=== PATIENT | male | born 2000 | race Caucasian/White ===

== ENCOUNTER 2022-02-22 17:57 | Emergency (ER) | payer MEDICAID | END 2022-02-22 19:25 | disposition left against medical advice (07) | LOC: EDUNIT# 17:57 → ER 18:02 | DX: J02.9 Acute pharyngitis, unspecified (principal); Z53.21 Procedure and treatment not carried out due to patient leaving prior to being seen by health care provider ==

== ENCOUNTER 2023-01-11 18:48 | Emergency (ER) | payer SELFPAY ==
[~2023-01-11] VITALS: Ht 182.9 cm; Wt 100.0 kg
[2023-01-11 18:50] VITALS: BP 145/87; PULSE 74; RESP 16; TEMP 98.4; O2SAT 99
[2023-01-11] MEDS ORDERED: CIPR-202 PO (23:24)
[2023-01-11] MEDS ORDERED: ACET-1025 PO (23:24)
[2023-01-11] MEDS ORDERED: IBUP-1985 PO (23:24)
== END 2023-01-11 19:37 | disposition left against medical advice (07) ==
LOC: ER 18:48
DX: M79.672 Pain in left foot (principal); Z53.21 Procedure and treatment not carried out due to patient leaving prior to being seen by health care provider
CPT/HCPCS: 99281

== ENCOUNTER 2023-01-11 22:05 | Emergency (ER) | payer BC ==
[~2023-01-11] VITALS: Ht 182.9 cm; Wt 85.6 kg
[2023-01-11 22:27] VITALS: BP 140/77; PULSE 66; RESP 16; TEMP 98; O2SAT 98
[2023-01-11] MEDS ORDERED: ondansetron 4mg rapidly disintigrating tab PO ONE (23:20)
[2023-01-11] MEDS ORDERED: ketorolac trometh inj. 60 MG/2 ML VIAL IM ONE (23:20)
[2023-01-11] MEDS ORDERED: ciprofloxacin 250mg tablet PO ONE (23:20)
[2023-01-11] MEDS ORDERED: acetaminophen 325mg tablet PO ONE (23:20)
[2023-01-11] MEDS ORDERED: TETanus/Pertussis (Acell)/Diphther VAC/PF (Tdap-Adult) 0.5ml syringe IMVAC ONE (23:20)
[2023-01-11] MEDS ORDERED: IBUP-1985 PO (23:24)
[2023-01-11] MEDS ORDERED: CIPR-202 PO (23:24)
[2023-01-11] MEDS ORDERED: ACET-1025 PO (23:24)
== END 2023-01-11 23:40 | disposition home or self-care (01) ==
LOC: ER 22:06
DX: S91.331A Puncture wound without foreign body, right foot, initial encounter (principal); R20.0 Anesthesia of skin; J45.909 Unspecified asthma, uncomplicated; Z23 Encounter for immunization; W45.0XXA Nail entering through skin, initial encounter; Y93.89 Activity, other specified; Y92.89 Other specified places as the place of occurrence of the external cause; Y99.8 Other external cause status
CPT/HCPCS: 73630; 90471; 90715; 96372; 99284; J1885

== ENCOUNTER 2024-10-30 06:24 | Inpatient (IN) | payer BC, MEDICAID ==
[~2024-10-30] VITALS: Ht 182.9 cm; Wt 111.0 kg
[~2024-10-30 06:24] MED LIST: IBUP-1985 PO
[2024-10-30 06:52] LABS: MEAN PLATELET VOLUME 8.8 FL (7.4-10.4); RED CELL DISTRIBUTION WIDTH 13.1 % (11.5-14.5)
--- NOTE | 2024-10-30 06:55 | Physician Documentation ---
History of Present Illness Chief Complaint: Abdominal Pain Stated Complaint: ABDOMINAL PAIN Time Seen by MD: 06:42 Primary Medical Doctor: None Mode of Arrival: POV, Ambulatory HPI 24-year-old male presenting with epigastric abdominal pain that started about an hour and half ago and suddenly woke him up from sleep. He describes the pain as sharp, it his epigastrium than radiating to his back. He rates it at about 6/10 on intensity and also reports that he had two episodes of nonbloody vomiting earlier. Denies any diarrhea, constipation, urinary symptoms, fever, chills or any other associated symptoms. States that yesterday he felt fine and denies eating anything unusual. He smokes cigarettes but denies any heavy alcohol or drug use. 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 CONST: Well developed and well nourished. In no acute distress HENT: Head Atraumatic EYES: Pupils are equal, round and reactive to light. Normal conjunctiva NECK: Normal range of motion. Supple. CARDIO: Normal rate and regular rhythm. No murmurs, rubs, or gallops. S1, S2. PULM/CHEST: No respiratory distress. Lungs clear to auscultation. No wheeze ABD: Soft, slight tenderness to palpation over the epigastrium. Nondistended. Bowel sounds normal. No guarding. : Exam deferred MSK: No edema. No deformity. NEURO: Alert and oriented to person, place and time. Moving all extremities SKIN: Warm and dry. PSYCH: Normal mood and affect. Good eye contact. Progress Results/Orders Results/Orders Orders - TANIA PETERSON MD Urinalysis, Cult If Indicated (10/30/24 06:30) Cbc/Diff (10/30/24 06:30) Amylase (10/30/24 06:30) Lipase (10/30/24 06:30) CMP (10/30/24 06:30) Stat Ekg (10/30/24 ) Troponin (Single) (10/30/24 06:50) Chest,Single View (10/30/24 06:50) Vital Signs 10/30/24 10/30/24 10/30/24 06:27 06:42 06:42 Temp 97.8 97.8 Pulse 43 49 Resp 18 12 16 B/P (MAP) 186/97 149/99 (116) Pulse Ox 100 98 O2 Flow Rate 0 Laboratory Tests Test 10/30/24 06:40 CBC Comment Chemistry Comments EKG/XRAY/CT/US/VASC/MRI EKG : Additional Comment EKG as interpreted by ED MD indicating sinus bradycardia with a rate of 42 beats per minute, no ischemia, normal axis Chest X-Ray : Additional Comments CHEST RADIOGRAPH Indication: epigastric pain Technique: Single frontal view of the chest was obtained COMPARISON: None FINDINGS: Lines and Tubes: None Lungs: Clear Pleura: No effusion. No pneumothorax. Cardiomediastinal contours: Unremarkable Bones: Unremarkable IMPRESSION: No acute disease. : Impression Exam: CT CT ABDOMEN PELVIS History: epigastric pain Comparison Study: None Technique: Multidetector spiral CT of the abdomen and pelvis was performed from lung bases to pubic symphysis. Imaging was performed without intravenous contrast. Coronal and sagittal multiplanar reformats were obtained from the axial data set by the technologist. Radiation Dose : 1. Abdomen/Pelvis: CTDIvol 33.3 mGy, DLP 2037.9 mGy*cm. Findings: Evaluation of vasculature and solid organs is limited due to lack of intravenous contrast use. Lung Bases: Lung bases are clear. Visualized portions of the heart and pericardium are unremarkable. Liver: The liver is normal in size. No focal lesions. Gallbladder and Biliary Tree: The gallbladder is distended with mild pericholecystic fat stranding. No intrahepatic or extrahepatic biliary ductal dilatation. Spleen: The spleen is enlarged measuring 16.2 cm. Pancreas: The pancreas is grossly unremarkable. Adrenal Glands: Unremarkable Kidneys: Kidneys are unremarkable without calculi or hydronephrosis. GI tract: The stomach is grossly normal in appearance. No evidence of small bowel wall thickening or abnormal dilatation to suggest bowel obstruction. The colon is unremarkable. The appendix is visualized and is normal in caliber. Peritoneum/mesentery/retroperitoneum. No evidence of free intraperitoneal air. No ascites. No evidence of suspicious lymphadenopathy. Abdominal Wall: Unremarkable. Vasculature: The visualized abdominal aorta is normal in size and caliber. Evaluation of abdominal and pelvic vessels is limited due to lack of intravenous contrast. Urinary Bladder: Grossly unremarkable for degree of distention. Pelvic Organs: Unremarkable Musculoskeletal: No aggressive focal bony lesions, acute fractures or dislocation. IMPRESSION: 1. Distended gallbladder with mild pericholecystic fat stranding. Right upper quadrant ultrasound is recommended for further evaluation to assess for acute cholecystitis. 2. Splenomegaly. Medical Decision Making Additional Comments 24-year-old male presenting with acute onset epigastric abdominal pain. His lab workup is grossly unremarkable. His CT of the abdomen and pelvis did indicate a distended gallbladder with fat stranding. A follow up ultrasound of the gallbladder did indicate sludge with a thickened gallbladder wall indicating developing acute cholecystitis. Patient will need admission. Surgery was consulted who will see the patient. He will be kept NPO. He was started on IV fluids and given a dose of IV Zosyn. Admission to hospitalist team. Departure Disposition: ADMITTED INPATIENT Admitted to Inpatient Unit: to hospitalist, to surgeon Admission Level of Care: Med/Surg Impression: Primary Impression: Acute cholecystitis Condition: Guarded Referrals: NO PRIMARY CARE PROVIDER (PCP) Signature Scribe Signature: 1 Attestation: 1 TANIA PETERSON MD Oct 30, 2024 06:55
[2024-10-30 07:16] LABS: CREATININE 1.02 MG/DL (0.60-1.10); TOTAL CARBON DIOXIDE 30.6 MMOL/L (24-32); eCRCL 125 ML/MIN; eGFR > 90 ML/MIN
--- NOTE | 2024-10-30 07:25 | ELECTROCARDIOGRAPH REPORT ---
[facility] Test Date: 2024-10-30 Test Time: 06:37:57 Pat Name: MAGDA FRANK Department: EMERGENCY ROOM Room: ORTHO 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 Hal Aguila Measurements Intervals [place] Rate: 42 P: 45 WI: 145 QRS: 89 QRSD: 117 T: 32 QT: 435 QTc: 364 Interpretive Statements Sinus bradycardia Incomplete right bundle branch block Electronically Signed On 10-30-2024 19:42:[address] Hal Aguila Please click the below link to view image of tracing.
--- NOTE | 2024-10-30 07:48 | RADIOLOGY REPORT ---
CHEST RADIOGRAPH Indication: epigastric pain Technique: Single frontal view of the chest was obtained COMPARISON: None FINDINGS: Lines and Tubes: None Lungs: Clear Pleura: No effusion. No pneumothorax. Cardiomediastinal contours: Unremarkable Bones: Unremarkable IMPRESSION: No acute disease.
[2024-10-30 08:54] LABS: LEUKOCYTE ESTERASE ,URINE NEGATIVE (Neg); NITRITES, URINE NEGATIVE (Neg); OCCULT BLOOD,URINE NEGATIVE (Neg)
[2024-10-30 08:55] LABS: UA COLLECTION TYPE CLN CATCH MIDSTREAM
--- NOTE | 2024-10-30 08:57 | RADIOLOGY REPORT ---
Exam: CT CT ABDOMEN PELVIS History: epigastric pain Comparison Study: None Technique: Multidetector spiral CT of the abdomen and pelvis was performed from lung bases to pubic s ymphysis. Imaging was performed without intravenous contrast. Coronal and sagittal multiplanar reform ats were obtained from the axial data set by the technologist. Radiation Dose : 1. Abdomen/Pelvis: CTDIvol 33.3 mGy, DLP 2037.9 mGy*cm. Findings: Evaluation of vasculature and solid organs is limited due to lack of intravenous contrast use. Lung Bases: Lung bases are clear. Visualized portions of the heart and pericardium are unremarkable. Liver: The liver is normal in size. No focal lesions. Gallbladder and Biliary Tree: The gallbladder is distended with mild pericholecystic fat stranding. No intrahepatic or extrahepatic biliary ductal dilatation. Spleen: The spleen is enlarged measuring 16.2 cm. Pancreas: The pancreas is grossly unremarkable. Adrenal Glands: Unremarkable Kidneys: Kidneys are unremarkable without calculi or hydronephrosis. GI tract: The stomach is grossly normal in appearance. No evidence of small bowel wall thickening or abnormal dilatation to suggest bowel obstruction. The colon is unremarkable. The appendix is visualiz ed and is normal in caliber. Peritoneum/mesentery/retroperitoneum. No evidence of free intraperitoneal air. No ascites. No evidenc e of suspicious lymphadenopathy. Abdominal Wall: Unremarkable. Vasculature: The visualized abdominal aorta is normal in size and caliber. Evaluation of abdominal a nd pelvic vessels is limited due to lack of intravenous contrast. Urinary Bladder: Grossly unremarkable for degree of distention. Pelvic Organs: Unremarkable Musculoskeletal: No aggressive focal bony lesions, acute fractures or dislocation. IMPRESSION: 1. Distended gallbladder with mild pericholecystic fat stranding. Right upper quadrant ultrasound is recommended for further evaluation to assess for acute cholecystitis. 2. Splenomegaly.
[2024-10-30] MEDS: piperacillin/tazo 3.375gm/50ml 50 ML IV ONE (09:47)
--- NOTE | 2024-10-30 10:51 | HISTORY AND PHYSICAL ---
History & Physical Providers to Complaint, abdominal pain ~ History of Present Illness Reason for Admit\Complaint: As above History of Present Illness This is a 24-year-old male, relatively in good health, except history of bradycardia heart rate on admission 42, hypertension poor control, bronchial asthma, splenomegaly, presented today to emergency department chief complaint abdominal pain; in addition this is the patient who years presenting with epigastric abdominal pain that started about an hour and half ago and suddenly woke him up from sleep. He describes the pain as sharp, it his epigastrium than radiating to his back. He rates it at about 6/10 on intensity and also reports that he had two episodes of nonbloody vomiting earlier. Denies any diarrhea, constipation, urinary symptoms, fever, chills or any other associated symptoms. States that yesterday he felt fine and denies eating anything unusual. He smokes cigarettes but denies any heavy alcohol or drug use. Department he was evaluated by physician and after consultation with the surgeon decision was made to admit patient for further evaluation and treatment rule out acute cholecystitis,. Patient started on IV antibiotics, HIDA test pending. 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 No diaphoresis. Allergic/Immunologic, no lymphadenopathy, no hives, no skin eruptions. Eyes, no recent visual changes, no eye pain, no photophobia. Ears, nose, mouth, throat, no sore throat, no nosebleed, no ear pain. Cardiovascular, no palpitations, skipped beats, chest pain, no peripheral edema, Respiratory, no dyspnea, orthopnea, cough, hemoptysis, chest wall pain. Gastrointestinal, positive for abdominal pain, nausea, vomiting, no constipation or diarrhea. : no dysuria, hematuria, pelvic pain, urethral d/c. Endocrine, no polyuria, polydipsia, recent unintentional weight gain or loss. Hematologic/Lymphatic, no petechiae, no enlarged lymph nodes, no bone pain. Integumentary, no rash, no skin lesions, Musculoskeletal, no muscle aches, or pain, no muscle cramps, no recent change in gait Neurological, no dizziness, no headache, no syncope, no paresthesia. Psychiatric, no delusions, visual hallucinations, or hearing hallucinations. ROS - in rest is as in HPI. Exam Vitals: Vital Signs Date Time Temp Pulse Resp B/P (MAP) Pulse Ox O2 Delivery O2 Flow Rate FiO2 10/30/24 09:36 97.8 65 20 155/81 (105) 98 0 Vital signs, stable ,afebrile. Pulse Oximetry reflects adequate oxygenation. BMI is General: well developed, well nourished. Awake , alert, and oriented x4, resting comfortably in the bed, in no acute distress . Skin: Warm, dry, no pallor, no rash or petechiae. HEENT: Atraumatic, normocephalic, EOMI, anicteric sclera B; pink conjunctiva; PERRLA, normal oropharynx, moist oral and nasal mucosa. Tympanic membrane , nose , throat clear. Neck: Trachea midline. Supple, full range of motion, no JVD, bruit , hepatojugular reflex , lymphadenopathy or masses, or other lesions Cardiac: Regular rhythm, regular rate no murmurs, rubs, or gallops. Normal S1 and S2, no S3 noticed. PMI is normal. Respiratory: Equal breath sounds bilaterally, no tachypnea; lungs clear to auscultation bilaterally, no wheezing ,rub or rales, or crackles. Chest wall is symmetric and without deformity. No signs of trauma. Chest wall is nontender. No signs of respiratory distress. Resonance is normal upon percussion bilaterally. Gastrointestinal: Abdomen symmetric, non-distended, soft, mild tender to palpation right upper quadrant and epigastric area, normal bowel sounds x4 quadrant, normoactive, no hepatosplenomegaly , no masses , no bruit, no flank pain bilaterally. No voluntary guarding, rebound, or rigidity. No tenderness to percussion. No pulsatile masses. Equal femoral pulses. Positive Gavin's sign , no McBurney point tenderness. Back; no CVA tenderness bilaterally, no deformities. Neck and back are without deformity as well. No tenderness noted on palpation of the spinous processes. Spinous processes are midline. Cervical, thoracic, and lumbar paraspinal muscles are not tender and are without spasm. : normal external genitalia, without lesions, swelling, masses or tenderness. Musculoskeletal: Extremities, normal range of motion, non-tender, muscle strength 5/5 x 4. Negative Homans signs bilaterally on lower extremity. Distal pulses full symmetrical, no clubbing, cyanosis , edema. Neurological: Speech is clear, alert, and oriented x 4. No motor or sensory deficit, deep tendon reflexes normal, cerebellar intact. Cranial nerves II-XII intact. Psych: Alert and or appropriate, normal affect. Vascular: Good distal pulses, which are equal x4; capillary refill less than 2 seconds. Lymphatic, no lymphadenopathy. Diagnostic Data Last Recorded Lab Results: 10/30/24 0640 10/30/24 0640 Advance Care Planning Advanced Care plannin - 30 Minutes Additional Plan Assessment Acute cholecystitis Gallbladder polyp Hypertension poor control Hypokalemia Sinus bradycardia Splenomegaly History of bronchial asthma Plan IV fluids antibiotics keep patient well hydrated euvolemic Replace electrolytes Patient NPO Protonix IV HIDA test pending Additional lab work pending Surgeon is on the case awaiting evaluation and consultation I reconciled home medications DVT gastropathy prophylaxis addressed Sepsis Screening Reassessment Date: Oct 30, 2024 Date of Service: Oct 30, 2024 Billing Provider: LASHANDA JAUREGUI MD Common Visit Codes: 95447-[id number] INP/OBS CARE (HIGH) Secondary Visit Codes: 83863-[id number] CARE PLAN ADDL 30MIN LASHANDA JAUREGUI MD Oct 30, 2024 10:51
[2024-10-30] MEDS: normal saline 1000ml 1,000 ML IV SCH (10:52)
--- NOTE | 2024-10-30 10:53 | RADIOLOGY REPORT ---
INDICATION: gallbladder distension TECHNIQUE: Multiple real-time sonographic images were obtained of the right upper quadrant. COMPARISON: CT CT ABDOMEN PELVIS on DOS: 10/30/24 FINDINGS: The liver demonstrates homogeneous echotexture without focal mass lesions. The liver measu res 13.2 cm. There is no intrahepatic or extrahepatic ductal dilatation. The common duct measures 0.3 cm. Gallbladder sludge is present. The gallbladder wall measures 0.4 cm and is within normal limits. Gall bladder polyp is present measuring 0.2 cm. The right kidney measures 10.9 cm. The right kidney is normal in contour, size, and shape. The echoge nicity is normal. There is no hydronephrosis. The pancreas is not well visualized due to overlying bowel gas. IMPRESSION: Gallbladder sludge is present. Gallbladder polyp is present measuring 0.2 cm. FOLLOW UP RECOMMENDATIONS: Low-risk polyps (pedunculated with a thick or wide stalk, or sessile): < 6 mm: no follow-up 7-9 mm follow-up ultrasound at 12 months 10-14 mm: follow-up ultrasound at 6, 12, 24, and 36 months vs surgical consult > 15 mm: surgical consult Reji Bess, Scot C, Josie J et al. Management of Incidentally Detected Gallbladder Polyps: Society of Radiologists in Ultrasound Consensus Conference Recommendations. Radiology. 2021;:[id number].
[2024-10-30] MEDS ORDERED: NO HOME MEDS (11:15)
[2024-10-30] MEDS ORDERED: HYDROcodone/acetaminophen 5mg/325mg tablet PO PRN (11:55)
[2024-10-30] MEDS ORDERED: ondansetron 4mg rapidly disintigrating tab PO PRN (11:55)
[2024-10-30] MEDS ORDERED: potassium Cl 20 mEq SR tablet PO PRN ×2 (11:55)
[2024-10-30] MEDS ORDERED: magnesium hydroxide 30ml (MOM) UD suspension PO PRN (11:55)
[2024-10-30] MEDS ORDERED: mag hydrox/Alum hydrox/simeth 30ml oral suspension PO PRN (11:55)
[2024-10-30] MEDS ORDERED: HYDROmorphone inj. 0.5 MG/0.5 ML DISP.SYRIN IV PRN (11:55)
[2024-10-30] MEDS ORDERED: bisacodyl 10mg suppository rectal RC PRN (11:55)
[2024-10-30] MEDS ORDERED: HYDROcodone/acetaminophen 10/325mg tab PO PRN (11:55)
[2024-10-30] MEDS ORDERED: acetaminophen 650mg rectal suppository RC PRN (11:55)
[2024-10-30] MEDS ORDERED: metoclopramide 5 mg/ml inj IV PRN (11:55)
[2024-10-30] MEDS ORDERED: potassium Cl 40MEQ/1/2NS 520ml 520 ML IV PRN (11:55)
[2024-10-30] MEDS ORDERED: magnesium sulf-water 4G/100mL 100 ML IV PRN (11:55)
[2024-10-30] MEDS ORDERED: magnesium Cl slow-release 64mg tablet PO PRN (11:55)
[2024-10-30] MEDS ORDERED: ondansetron/PF 4mg/2ml inj IV PRN (11:55)
[2024-10-30] MEDS ORDERED: magnesium sulf-water 2g/50mL 50 ML IV PRN (11:55)
[2024-10-30 12:37] LABS: APTT 27 SECONDS (22-32); INR 1.1 INR
[2024-10-30 12:46] LABS: PHOSPHORUS 3.7 MG/DL (2.3-4.5); PRO BRAIN NATRIURETIC PEPTIDE 105 PG/ML (0-125)
--- NOTE | 2024-10-30 13:58 | RADIOLOGY REPORT ---
Procedure: NM NM HIDA SCAN Exam Date: 10/30/2024 12:04 PM Clinical History: Gallbladder distension Comparison Study: US ULTRASOUND OF ABDOMEN on DOS: 10/30/24, CT CT ABDOMEN PELVIS on DOS: 10/30/24 Nuclear Medicine Hepatobiliary Scan. Technique: Following the intravenous administration of 5 mCi of technetium 99m labeled Choletec multiple planar abdominal planar images were obtained in anterior projection in 5 minute intervals for 60 minutes . R ight lateral images were obtained at 65 minutes after injection. Findings: The liver appears grossly normal in size. There is no abnormal persistence of the cardiac or blood po ol activity. Gallbladder is not visualized at 65 minutes. Impression: Findings consistent with cystic duct obstruction.
[2024-10-30 14:26] LABS: URINE AMPHETAMINE SCREEN NEGATIVE (Neg); URINE BARBITUATE SCREEN NEGATIVE (Neg); URINE BENZODIAZEPINES SCREEN NEGATIVE (Neg); URINE CANNABINOID SCREEN NEGATIVE (Neg); URINE COCAINE SCREEN NEGATIVE (Neg); URINE METHADONE SCREEN NEGATIVE (Neg); URINE OPIATE SCREEN NEGATIVE (Neg); URINE PHENCYCLIDINE SCREEN NEGATIVE (Neg)
[2024-10-30] MEDS: potassium Cl 20mEq in NS 1,000 ML IV SCH (14:27)
[2024-10-30 16:00] VITALS: BP 117/75; PULSE 44; RESP 16; TEMP 97.3; O2SAT 100
[2024-10-30 18:00] VITALS: BP 117/75; PULSE 44; RESP 21; TEMP 97.8; O2SAT 100
[2024-10-30] MEDS: piperacillin/tazo 4.5gm/100ml 100 ML IV SCH (18:00)
[2024-10-30] MEDS: K and/or MAG REPLACEMENT MC SCH (18:41)
[2024-10-30] MEDS: docusate sod 100mg capsule PO SCH (19:12)
--- NOTE | 2024-10-30 19:17 | CONSULTATION REPORT ---
Consult Providers to CC ~ History of Present Illness Reason for Admit\Complaint: 24-year-old male admitted with chief complaint of abdominal pain. History of Present Illness 24-year-old male presented to emergency room earlier today 10/30/2024 with severe epigastric and right upper quadrant pain. Signs and symptoms began approximately 5:00 a.m. this morning. Associated symptoms include nausea and vomiting. He denies any fever, chills, diarrhea or constipation. This is the patient's 1st episode of this type. He has no significant past medical history or surgical history. He does not take any medications. He is currently seen, comfortable, no acute distress. He is requesting to eat, as well as being discharged home. Allergies: Coded Allergies: No Known Allergies (Unverified , 10/30/24) Home Medications Home Medications Active Reported No Home Medications (Home Med List) Each Past Medical History Past Medical History None Past Surgical History Surgical History Comment None Family History Family History: FH: hypertension FATHER MOTHER FAMILY/OTHER FHx: gallstones MOTHER GRANDFATHER OR GRANDMOTHER FAMILY/OTHER Past Social History Social History Comment Denies any recreational drug abuse, alcohol abuse Health Maintenance Health Maintenance None specified ROS ROS All within normal limits except HPI Exam Vitals: Vital Signs Date Time Temp Pulse Resp B/P (MAP) Pulse Ox O2 Delivery O2 Flow Rate FiO2 10/30/24 18:30 48 10/30/24 16:10 Room Air 0.0 10/30/24 16:00 97.3 16 117/75 (89) 100 General: Alert, no acute distress HEENT: NC/AT, PERRLA, nonicteric, hearing intact, no nasal discharge, no pharyngeal exudate Neck: Supple, nontender Chest: CTA bilaterally Cardiovascular: Regular rate and rhythm Abdomen: Soft, nondistended, currently nontender, +BS Extremities: No edema Central Nervous System: No gross or focal deficits Musculoskeletal: FROM, no muscle weakness Skin: Warm, dry, normal temperature Diagnostic Data Last Recorded Lab Results: 10/30/24 0640 10/30/24 0640 Diagnostic Data: Laboratory Tests Test 10/30/24 12:13 Prothrombin Time 11.0 SECONDS (9.0-12.0) INR International Normalized Ratio 1.1 INR Activated Partial Thromboplast Time 27 SECONDS (22-32) D-Dimer 0.27 MG/L FEU (0-0.50) D-Dimer Comment Coagulation Comments Abdominal ultrasound : INDICATION: gallbladder distension TECHNIQUE: Multiple real-time sonographic images were obtained of the right upper quadrant. COMPARISON: CT CT ABDOMEN PELVIS on DOS: 10/30/24 FINDINGS: The liver demonstrates homogeneous echotexture without focal mass lesions. The liver measures 13.2 cm. There is no intrahepatic or extrahepatic ductal dilatation. The common duct measures 0.3 cm. Gallbladder sludge is present. The gallbladder wall measures 0.4 cm and is within normal limits. Gallbladder polyp is present measuring 0.2 cm. The right kidney measures 10.9 cm. The right kidney is normal in contour, size, and shape. The echogenicity is normal. There is no hydronephrosis. The pancreas is not well visualized due to overlying bowel gas. IMPRESSION: Gallbladder sludge is present. Gallbladder polyp is present measuring 0.2 cm. HIDA: Procedure: NM NM HIDA SCAN Exam Date: 10/30/2024 12:04 PM Clinical History: Gallbladder distension Comparison Study: US ULTRASOUND OF ABDOMEN on DOS: 10/30/24, CT CT ABDOMEN PELVIS on DOS: 10/30/24 Nuclear Medicine Hepatobiliary Scan. Technique: Following the intravenous administration of 5 mCi of technetium 99m labeled Choletec multiple planar abdominal planar images were obtained in anterior projection in 5 minute intervals for 60 minutes . Right lateral images were obtained at 65 minutes after injection. Findings: The liver appears grossly normal in size. There is no abnormal persistence of the cardiac or blood pool activity. Gallbladder is not visualized at 65 minutes. Impression: Findings consistent with cystic duct obstruction. Problems: (1) Cholelithiasis Assessment & Plan: Assessment: Cholelithiasis, 1st episode, currently asymptomatic. Plan: Patient is requesting to eat and be discharged. It was explained to the patient with cholelithiasis, recommendation is to eventually undergo laparoscopic cholecystectomy. We will trial on full liquid diet. If the patient tolerates a full liquid diet, then he could be discharged home and have elective laparoscopic cholecystectomy. He will follow up in the office after discharge. Time spent: Approximately 45 minutes have been spent reviewing the chart, reviewing radiological studies, in the history from patient. In-depth discussion with patient regarding current diagnosis and management. He was given the opportunity to ask questions, and all his questions were answered to his satisfaction at present time. Problem Qualifiers (1) Cholelithiasis: Cholelithiasis location: gallbladder Cholecystitis presence: without cholecystitis Biliary obstruction: without biliary obstruction Qualified Codes: K80.20 - Calculus of gallbladder without cholecystitis without obstruction ROBYN LUU DO Oct 30, 2024 19:17
[2024-10-30 20:00] VITALS: RESP 16; O2SAT 100
[2024-10-30 22:00] VITALS: BP 132/61; PULSE 44; RESP 17; TEMP 97.9; O2SAT 98
[2024-10-31 05:39] LABS: MEAN PLATELET VOLUME 9.0 FL (7.4-10.4); RED CELL DISTRIBUTION WIDTH 13.0 % (11.5-14.5)
[2024-10-31 05:54] LABS: CHOL/HDL RATIO 4.1 (0.00-4.99); CREATININE 1.13 MG/DL (0.60-1.10); LDL CHOLESTEROL 82 MG/DL (50-100); TOTAL CARBON DIOXIDE 30.3 MMOL/L (24-32); eCRCL 113 ML/MIN; eGFR 81 ML/MIN
[2024-10-31] MEDS ORDERED: pantoprazole 40MG/NS 100ML BAG 100 ML IV SCH (08:00)
--- NOTE | 2024-10-31 13:53 | DISCHARGE SUMMARY ---
Discharge Summary Providers to CC ~ Discharge Summary Admission Diagnosis: Symptomatic cholelithiasis Hospital Course DATE OF ADMISSION: 10/30/24 DATE OF DISCHARGE: 10/31/24 Discharge Diagnosis\Comment: Symptomatic cholelithiasis Operations\Procedures: None Consultants: Surgeon Saul Bell Complications: None Condition on DC: Stable Continued Medications: Home Med List (No Home Medications) Each Discharge Summary: Hospital course Rogerio Velazquez is a 24-year-old male with past medical history of asthma, splenomegaly, hypertension who presented to the ED with chief complaint of acute onset abdominal pain. Initial CT abdomen/pelvis revealed distended gallbladder with mild pericholecystic fat stranding. Pertinent negative findings were no signs of infection, normal lipase, normal bicarb. Surgeon Saul Driscoll was consulted. A subsequent HIDA scan showed findings consistent with cystic duct obstruction. Due to patient requesting to eat and be discharged, decision with surgeon was made for elective laparoscopic cholecystectomy with outpatient follow-up. Patient tolerated diet well and no longer reports abdominal pain. Patient did not experience further complications throughout the entire hospital stay. Patient was seen and examined on the day of discharge. On day of discharge, vss and labs unremarkable. All labs, diagnostic workups, discharge plan discussed with patient in details during visit before discharge. All questions and concerns answered to the best of my professional knowledge. Patient is to be discharged to home to self and to follow-up with PCP and surgeon Dr. Bell within 2 weeks. Physical Exam General: A&Ox 3, NAD HEENT: Normocephalic, PERRLA Neck: Supple, trachea midline, no JVD Chest: Clear to auscultation bilaterally Cardiovascular: RRR, S1&S2 GI: Soft and nontender Extremities: No cyanosis/clubbing/or edema [employer]: CN II-XII intact, no focal deficits Musculoskeletal: No paraspinal muscle tenderness, no muscle spasm Skin: Warm and intact *Problems/Diagnosis: (1) Cholelithiasis Status: Acute Total Time Spent on D/C: > 30 Minutes Date of Service: Oct 31, 2024 Billing Provider: KIRSTY MARISCAL Common Visit Codes: 50068-JSP/OBS DISCH DAY >30min Problem Qualifiers (1) Cholelithiasis: Qualified Codes: K80.20 - Calculus of gallbladder without cholecystitis without obstruction KIRSTY MARISCAL Oct 31, 2024 13:53
== END 2024-10-31 11:04 | disposition home or self-care (01) ==
LOC: ER 06:24 → ED HOLD 11:57 → ORTHO 4S 16:00
PROVIDERS: ADMIT Family Medicine; ATTEND Family Medicine
PROC: CF141ZZ Planar Nuclear Medicine Imaging of Gallbladder using Technetium 99m (Tc-99m) (ICD-10-PCS; principal; 2024-10-30)
DX: K80.01 Calculus of gallbladder with acute cholecystitis with obstruction (principal); E87.6 Hypokalemia; F17.210 Nicotine dependence, cigarettes, uncomplicated; I10 Essential (primary) hypertension; J45.909 Unspecified asthma, uncomplicated; Z82.49 Family history of ischemic heart disease and other diseases of the circulatory system
CPT/HCPCS: 36415; 71045; 74176; 76700; 78226; 80053; 80061; 80305; 81003; 82150; 82550; 83036; 83690; 83735; 83880; 84100; 84443; 84484; 85025; 85379; 85610; 85730; 87081; 93005; 96374; 99285; A9537; G0378; J2543; J3480; J7030